=== PATIENT | female | born 1985 | race African-American/Black ===

== ENCOUNTER 2021-08-16 09:25 | Emergency (ER) | payer OTHER ==
[~2021-08-16] VITALS: Ht 170.2 cm; Wt 121.7 kg
[2021-08-16] MEDS ORDERED: NAPROSYN500 MG PO (11:48)
== END 2021-08-16 12:10 | disposition home or self-care (01) ==
LOC: FSED 10:16
DX: Z48.02 Encounter for removal of sutures (principal); M25.572 Pain in left ankle and joints of left foot
CPT/HCPCS: 99283

== ENCOUNTER 2021-09-20 13:50 | Emergency (ER) | payer OTHER ==
[~2021-09-20] VITALS: Ht 170.2 cm; Wt 119.7 kg
[~2021-09-20 13:50] MED LIST: NAPROSYN500 MG PO
[2021-09-20] MEDS ORDERED: HYDROCODONE/APAP 5MG-325MG TAB PO ONE (15:00)
[2021-09-20] MEDS ORDERED: HYDROCODONE/APAP 5MG-325MG TAB ONE (15:15)
[2021-09-20] MEDS ORDERED: KETOROLAC TROME10 MG PO (15:35)
[2021-09-20] MEDS ORDERED: PREDNISONE20 MG PO (15:35)
== END 2021-09-20 15:45 | disposition home or self-care (01) ==
LOC: FSED 14:48
DX: M25.532 Pain in left wrist (principal); G56.02 Carpal tunnel syndrome, left upper limb
CPT/HCPCS: 99283

== ENCOUNTER 2024-07-25 09:14 | Emergency (ER) | payer OTHER ==
[~2024-07-25] VITALS: Ht 170.2 cm; Wt 124.0 kg
[~2024-07-25 09:14] MED LIST changes: +CLARITIN-D 241 EACH PO; +CYCLOBENZAPRINE10 MG PO; +FLONASE ALLERG9.9 ML INH; +IBUPROFEN600 MG PO; +KETOROLAC TROME10 MG PO; +PREDNISONE20 MG PO
[2024-07-25] MEDS ORDERED: IOPAMIDOL 370 MG/ML 100 ML INFUS..BTL INJ ONE (09:42)
[2024-07-25] MEDS ORDERED: DEXAMETHASONE SOD PHOS 10 MG/1 ML VIAL IV ONE (09:45)
[2024-07-25] MEDS ORDERED: DEXAMETHASONE SOD PHOS INJ 4 MG/ML SDV ONE (10:04)
[2024-07-25] MEDS: KETOROLAC TROMETHAMINE 30 MG/ML VIAL IV STA (10:10)
[2024-07-25] MEDS: SODIUM CHLORIDE 0.9% 1000ML 1,000 ML IV SCH (10:11)
[2024-07-25] MEDS: DEXAMETHASONE SOD PHOS INJ 4 MG/ML SDV IV ONE (10:50)
[2024-07-25 12:28] VITALS: PULSE 80; RESP 18; TEMP 98; O2SAT 97
[2024-07-25] MEDS ORDERED: ACETAMINOPHEN-1 EAC4 PO (12:39)
[2024-07-25] MEDS ORDERED: IBUPROFEN800 MG PO (12:39)
[2024-07-25] MEDS ORDERED: CLEOCIN HCL300 MG PO (12:39)
[2024-07-25] MEDS ORDERED: CIPRO500 MG PO (12:43)
== END 2024-07-25 12:54 | disposition home or self-care (01) ==
LOC: FSED 09:25
DX: H92.01 Otalgia, right ear (principal); J02.9 Acute pharyngitis, unspecified; I88.9 Nonspecific lymphadenitis, unspecified; E66.9 Obesity, unspecified
CPT/HCPCS: 70491; 80053; 81003; 81025; 83518; 85025; 96374; 96375; 99284; J1100; J1885; J7030; Q9967

== ENCOUNTER 2024-09-12 13:48 | Emergency (ER) | payer OTHER ==
[~2024-09-12] VITALS: Ht 170.2 cm; Wt 122.6 kg
[~2024-09-12 13:48] MED LIST changes: +ACETAMINOPHEN-1 EAC4 PO; +CIPRO500 MG PO; +CLEOCIN HCL300 MG PO; +IBUPROFEN800 MG PO
[2024-09-12 13:52] VITALS: PULSE 77; RESP 18; TEMP 97.3; O2SAT 98
[2024-09-12] MEDS ORDERED: ONDANSETRON HCL 4 MG ORAL DISINTEGRATING TAB PO ONE (14:00)
== END 2024-09-12 14:25 | disposition home or self-care (01) ==
LOC: FSED 13:54
DX: K52.9 Noninfective gastroenteritis and colitis, unspecified (principal); E66.9 Obesity, unspecified
CPT/HCPCS: 99283; Q0162

== ENCOUNTER 2024-09-22 22:59 | Emergency (ER) | payer MEDICAID, OTHER ==
[~2024-09-22] VITALS: Ht 170.2 cm; Wt 124.7 kg
[2024-09-22 23:02] VITALS: PULSE 100; RESP 20; TEMP 99
[2024-09-22] MEDS ORDERED: DIPHENHYDRAMINE25 M2 PO (23:25)
[2024-09-22] MEDS ORDERED: MOMETASONE FURO15 G2 TOP (23:25)
[2024-09-22] MEDS ORDERED: PREDNISONE20 MG PO (23:26)
[2024-09-22] MEDS: DEXAMETHASONE SOD PHOS INJ 4 MG/ML SDV IM ONE (23:32)
[2024-09-22 23:38] VITALS: BP 129/76; O2SAT 97
== END 2024-09-22 23:40 | disposition home or self-care (01) ==
LOC: FSED 23:02
DX: L25.9 Unspecified contact dermatitis, unspecified cause (principal); E66.9 Obesity, unspecified
CPT/HCPCS: 96372; 99283; J1100

== ENCOUNTER 2024-09-25 11:17 | Emergency (ER) | payer MEDICAID ==
[~2024-09-25] VITALS: Ht 170.2 cm; Wt 124.3 kg
[~2024-09-25 11:17] MED LIST changes: +DIPHENHYDRAMINE25 M2 PO; +MOMETASONE FURO15 G2 TOP
[2024-09-25] MEDS: METHYLPREDNISOLONE SOD SUCC 125 MG/2ML VIAL IV ONE (11:48)
[2024-09-25] MEDS: FAMOTIDINE 20 MG/2 ML VIAL IV STA (11:48)
[2024-09-25] MEDS: DIPHENHYDRAMINE HCL INJ 50 MG/ML VIAL IV ONE (11:48)
[2024-09-25] MEDS ORDERED: PREDNISONE50 MG PO (13:16)
[2024-09-25] MEDS ORDERED: BENADRYL25 M1 PO (13:16)
[2024-09-25] MEDS ORDERED: PEPCID20 MG PO (13:16)
[2024-09-25 14:30] VITALS: BP 136/85; PULSE 71; PULSE 79; RESP 18; TEMP 97.7; O2SAT 98
== END 2024-09-25 14:33 | disposition home or self-care (01) ==
LOC: FSED 11:23
DX: T78.3XXA Angioneurotic edema, initial encounter (principal); E66.9 Obesity, unspecified
CPT/HCPCS: 80048; 80053; 96374; 96375; 99284; J1200; J1308; J2919

== ENCOUNTER 2025-01-28 15:51 | Emergency (ER) | payer MEDICAID ==
[~2025-01-28] VITALS: Ht 170.2 cm; Wt 122.3 kg
[~2025-01-28 15:51] MED LIST changes: +BENADRYL25 M1 PO; +PEPCID20 MG PO; +PREDNISONE50 MG PO
[2025-01-28] MEDS: IBUPROFEN 600 MG TAB PO STA (16:30)
[2025-01-28] MEDS ORDERED: KETOROLAC TROME10 MG PO (17:15)
[2025-01-28 17:32] VITALS: PULSE 65; RESP 18; TEMP 98; O2SAT 99
== END 2025-01-28 17:32 | disposition home or self-care (01) ==
LOC: FSED 15:59
DX: M79.621 Pain in right upper arm (principal); M75.31 Calcific tendinitis of right shoulder; M75.81 Other shoulder lesions, right shoulder; E66.9 Obesity, unspecified
CPT/HCPCS: 80048; 85025; 85379; 99283